=== PATIENT | male | born 1975 | race Caucasian/White ===

== ENCOUNTER 2023-06-05 16:31 | Outpatient (CLI) | payer BC ==
[2023-06-06] MEDS ORDERED: Iopamidol 300 61% 100 ML VIAL FS ONE (09:07)
== END 2023-06-05 16:32 | disposition home or self-care (01) ==
LOC: CSHCT 16:31
PROVIDERS: ATTEND Otolaryngology Plastic Surgery within the Head & Neck
DX: M54.2 Cervicalgia (principal); K11.8 Other diseases of salivary glands; J34.89 Other specified disorders of nose and nasal sinuses
CPT/HCPCS: 70491; Q9967